=== PATIENT | female | born 1990 | race Caucasian/White ===

== ENCOUNTER 2017-01-18 12:59 | Emergency (ER) | payer BC ==
[~2017-01-18] VITALS: Ht 160 cm; Wt 79.4 kg
[2017-01-18 13:09] VITALS: BP_SYST 105
[2017-01-18 14:28] VITALS: BP_SYST 110
== END 2017-01-18 14:28 | disposition home or self-care (01) ==
LOC: SED 12:59
DX: N61.0 Mastitis without abscess (principal)
CPT/HCPCS: 87070-TC; 87075-TC; 99284